=== PATIENT | female | born 1950 | race Caucasian/White ===

== ENCOUNTER → 2022-08-19 13:27 | Outpatient (BNVA) | payer MEDICARE, OTHER, SELFPAY | PROVIDERS: Visit Provider Dermatology | DX: D04.71 Carcinoma in situ of skin of right lower limb, including hip (principal); L57.0 Actinic keratosis; L82.1 Other seborrheic keratosis; L57.8 Other skin changes due to chronic exposure to nonionizing radiation; D69.2 Other nonthrombocytopenic purpura; Z85.828 Personal history of other malignant neoplasm of skin; Z72.0 Tobacco use | CPT/HCPCS: 17000; 17003; 99213 ==

== ENCOUNTER → 2022-11-16 15:41 | Outpatient (BNVA) | payer MEDICARE, OTHER, SELFPAY | PROVIDERS: PCP Registered Nurse; Visit Provider Dermatology | DX: L82.1 Other seborrheic keratosis (principal); L57.8 Other skin changes due to chronic exposure to nonionizing radiation; D69.2 Other nonthrombocytopenic purpura; D18.01 Hemangioma of skin and subcutaneous tissue; L81.0 Postinflammatory hyperpigmentation; Z85.828 Personal history of other malignant neoplasm of skin; L57.0 Actinic keratosis | CPT/HCPCS: 17000; 99213 ==

== ENCOUNTER → 2023-05-17 09:48 | Outpatient (BNVA) | payer MEDICARE, OTHER, SELFPAY | PROVIDERS: PCP Registered Nurse; Visit Provider Nurse Practitioner Family | DX: L57.0 Actinic keratosis (principal); D69.2 Other nonthrombocytopenic purpura; D18.01 Hemangioma of skin and subcutaneous tissue; L81.0 Postinflammatory hyperpigmentation; L57.8 Other skin changes due to chronic exposure to nonionizing radiation; Z85.828 Personal history of other malignant neoplasm of skin | CPT/HCPCS: 17000; 99213 ==

== ENCOUNTER → 2023-11-17 10:45 | Outpatient (BNVA) | payer MEDICARE, OTHER, SELFPAY | PROVIDERS: PCP Registered Nurse; Visit Provider Nurse Practitioner Family | DX: L57.0 Actinic keratosis (principal); L82.1 Other seborrheic keratosis; D69.2 Other nonthrombocytopenic purpura; D18.01 Hemangioma of skin and subcutaneous tissue; L81.0 Postinflammatory hyperpigmentation; L57.8 Other skin changes due to chronic exposure to nonionizing radiation; I78.8 Other diseases of capillaries; Z85.828 Personal history of other malignant neoplasm of skin | CPT/HCPCS: 17000; 99213 ==

== ENCOUNTER → 2024-08-16 10:27 | Outpatient (BNVA) | payer MEDICARE, OTHER, SELFPAY | PROVIDERS: PCP Registered Nurse; Visit Provider Nurse Practitioner Family | DX: L53.8 Other specified erythematous conditions (principal); K81.0 Acute cholecystitis; L81.0 Postinflammatory hyperpigmentation; L82.1 Other seborrheic keratosis; D69.2 Other nonthrombocytopenic purpura; D18.01 Hemangioma of skin and subcutaneous tissue; L57.8 Other skin changes due to chronic exposure to nonionizing radiation; I78.8 Other diseases of capillaries; Z08 Encounter for follow-up examination after completed treatment for malignant neoplasm; Z85.828 Personal history of other malignant neoplasm of skin; L57.0 Actinic keratosis | CPT/HCPCS: 17000; 99213 ==